=== PATIENT | female | born 1945 | race Caucasian/White ===

== ENCOUNTER 2017-06-18 11:35 | Emergency (ER) | payer MEDICARE ==
[~2017-06-18] VITALS: Ht 167.6 cm; Wt 82.0 kg
[~2017-06-18 11:35] MED LIST: AMLO2.5T PO; DULO20 PO; DYAZ37.57 PO; GABA600T PO; IBUP-1116 PO; LOPR100T PO; NITR0.4S SL; OMPR20CCR PO; ONDA4 PO; ST J81CH PO; TROS60CA PO; VITA400C28 PO; WARF2.5T40 PO; WARF5TAB PO; [UNRECOGNIZED DRUG - CODE] XX
[2017-06-18 11:37] VITALS: BP 125/76; PULSE 72; RESP 15; TEMP 98.1; O2SAT 97
--- NOTE | 2017-06-18 12:33 | PD ---
HPI Chief Complaint: Pain: Acute or Chronic Time Seen by Provider: 12:23 Travel History International Travel<30 days: No Contact w/Intl Traveler<30days: No Traveled to known affect area: No History of Present Illness HPI 71-year-old female presents to the emergency department concerned that she has a DVT and her left lower extremity. Patient reports history of blood clots. She reports having an IVC filter and is currently on Coumadin. She states that she called her physician [place] who stated that she could be switched to Eliquis, but did not give her the prescription. The patient states she dropped a shampoo bottle on her left foot days ago with the pain started. However, she is now having calf pain as well. No fevers or chills. No erythema. No chest pain or shortness of breath. No exacerbating or alleviating factors. Moderate severity. PFSH Past Medical History Cardiovascular Problems: Yes (HTN) Diabetes: Yes Deep Vein Thrombosis: Yes GERD: Yes Hypertension: Yes Past Surgical History Abdominal Surgery: Yes (HERNIA) Cholecystectomy: Yes Hysterectomy: Yes Other Surgery: Yes (FILTER) Social History Alcohol Use: No Tobacco Use: No Substance Use: No Allergies-Medications (Allergen,Severity, Reaction): Coded Allergies: codeine (Unverified Allergy, Severe, GI UPSET, 06/18/17) hydromorphone (Unverified Allergy, Severe, GI UPSET, 06/18/17) meperidine (Unverified Allergy, Severe, GI UPSET, 06/18/17) Reported Meds & Prescriptions Reported Meds & Active Scripts Active Reported Lopressor (Metoprolol Tartrate) 100 Mg Tab 100 Mg PO BID Warfarin Sodium 5 mg (Warfarin Sodium) 5 Mg Tab 5 Mg PO EVERY OTHER DAY Warfarin Sodium 2.5 mg (Warfarin Sodium) 2.5 Mg Tab 2.5 Mg PO EVERY OTHER DAY Lidocaine (Lidocaine (Bulk)) Cry 1 XX Advil 200 Mg Tab (Ibuprofen) 200 Mg Tab 400 Mg PO Q4H PRN Zofran 4 Mg Tab (Ondansetron Hcl) 4 Mg Tab 4 Mg PO Q6H PRN Prilosec 20 Mg Cap (Omeprazole) 20 Mg Capcr 20 Mg PO DAILY Trospium Chloride ER (Trospium Chloride) 60 Mg Cap 60 Mg PO TID Dyazide (Triamterene/HCTZ) 37.5 Mg/25 Mg Cap 1 Cap PO DAILY Gabapentin 600 Mg Tab 600 Mg PO TID Aspirin 81 mg chewable (Aspirin) 81 Mg Chw 81 Mg PO DAILY Amlodipine Besylate 2.5 mg (Amlodipine Besylate) 2.5 Mg Tab 1 Tab PO DAILY Cymbalta (Duloxetine HCl) 20 Mg Cap 20 Mg PO DAILY Nitrostat (Nitroglycerin) 0.4 Mg Subl 0.4 Mg SL PRN 1 TAB SL EVERY 5 MINS X 3 PRN CHEST PAIN Vitamin D 400 Unit Tab 400 Unit PO DAILY Review of Systems Except as stated in HPI: all other systems reviewed are Neg Physical Exam Narrative GENERAL: Well-nourished, well-developed female patient, afebrile. SKIN: Focused skin assessment warm/dry. Patient has small erythematous, scaly patches to bilateral lateral ankles consistent with her known psoriasis. HEAD: Normocephalic. Atraumatic. EYES: No scleral icterus. No injection or drainage. NECK: Supple, trachea midline. No JVD or lymphadenopathy. CARDIOVASCULAR: Regular rate and rhythm without murmurs, gallops, or rubs. Left pedal pulse 2+. RESPIRATORY: Breath sounds equal bilaterally. No accessory muscle use. Lungs sounds are clear to auscultation. GASTROINTESTINAL: Abdomen soft, non-tender, nondistended. MUSCULOSKELETAL: No cyanosis, or edema. Patient has tenderness over left posterior calf. She also has tenderness over left dorsal foot. BACK: Nontender without obvious deformity. No CVA tenderness. Data Data Last Documented VS Vital Signs Date Time Temp Pulse Resp B/P (MAP) Pulse Ox O2 Delivery O2 Flow Rate FiO2 06/18/17 11:37 98.1 72 15 125/76 (92) 97 Orders Orders Complete Blood Count With Diff (06/18/17 12:29) Basic Metabolic Panel (Bmp) (06/18/17 12:29) Act Partial Throm Time (Ptt) (06/18/17 12:29) Prothrombin Time / Inr (Pt) (06/18/17 12:29) Foot, Complete ([id number]) (06/18/17 ) Us Leg Venous Doppler (06/18/17 ) Labs Laboratory Tests Test 06/18/17 13:00 White Blood Count 7.1 TH/MM3 Red Blood Count 4.45 MIL/MM3 Hemoglobin 13.5 GM/DL Hematocrit 38.5 % Mean Corpuscular Volume 86.6 FL Mean Corpuscular Hemoglobin 30.3 PG Mean Corpuscular Hemoglobin Concent 35.0 % Red Cell Distribution Width 14.8 % Platelet Count 249 TH/MM3 Mean Platelet Volume 8.3 FL Neutrophils (%) (Auto) 61.9 % Lymphocytes (%) (Auto) 27.6 % Monocytes (%) (Auto) 7.9 % Eosinophils (%) (Auto) 2.1 % Basophils (%) (Auto) 0.5 % Neutrophils # (Auto) 4.4 TH/MM3 Lymphocytes # (Auto) 2.0 TH/MM3 Monocytes # (Auto) 0.6 TH/MM3 Eosinophils # (Auto) 0.2 TH/MM3 Basophils # (Auto) 0.0 TH/MM3 CBC Comment DIFF FINAL Differential Comment Prothrombin Time 28.2 SEC Prothromb Time International Ratio 2.8 RATIO Activated Partial Thromboplast Time 32.0 SEC Blood Urea Nitrogen 20 MG/DL Creatinine 1.01 MG/DL Random Glucose 231 MG/DL Calcium Level 8.8 MG/DL Sodium Level 140 MEQ/L Potassium Level 4.0 MEQ/L Chloride Level 105 MEQ/L Carbon Dioxide Level 26.2 MEQ/L Anion Gap 9 MEQ/L Estimat Glomerular Filtration Rate 54 ML/MIN MDM Medical Decision Making Medical Screen Exam Complete: Yes Emergency Medical Condition: Yes Medical Record Reviewed: Yes Interpretation(s) Last Impressions Lower Extremity Ultrasound 06/18/17 0000 Signed Impressions: Service Date/Time: Sunday, June 18, 2017 12:47 - CONCLUSION: Nonocclusive deep vein thrombosis of the proximal to mid left femoral vein. Александр Clarke MD Foot X-Ray 06/18/17 0000 Signed Impressions: Service Date/Time: Sunday, June 18, 2017 12:40 - CONCLUSION: No evidence of fracture. Александр Clarke MD Differential Diagnosis DVT versus contusion versus fracture versus muscle strain versus muscle spasm Narrative Course 71-year-old female presents to the emergency department for possible DVT the left lower extremity. CBC, BMP, PTT, PT/INR ordered and pending. Venous Doppler ultrasound left lower extremity is ordered and pending. X-ray of the left foot is ordered and pending. CBC is unremarkable. BMP shows no acute abnormality. PTT is 32.0. PT/INR is 28.2/2.8. US shows nonocclusive deep vein thrombosis in the proximal to mid left femoral vein. X-ray of the left foot shows no evidence of fracture. Patient reports over for the DVT his left lower extremity. This is a nonocclusive, most likely old DVT. Discussed results with tenderness in, Dr. Nicole, who agrees. Patient's INR is therapeutic and she has an IVC filter. She is encouraged to follow-up with her primary care physician. She is asking for a prescription for her psoriasis to her bilateral ankles. She'll be given a prescription for triamcinolone cream she is return here for any acute worsening of symptoms. She verbalizes agreement and understanding. Diagnosis Primary Impression: DVT (deep venous thrombosis) Qualified Codes: I82.512 - Chronic embolism and thrombosis of left femoral vein Additional Impression: Psoriasis Referrals: Primary Care Physician call for appointment Patient Instructions: Deep Venous Thrombosis (ED), General Instructions, Psoriasis (ED) Med/Other Pt SpecificInfo: Prescription(s) given Scripts Triamcinolone Topical (Triamcinolone Topical) 0.1% Cream 1 APPLIC TOPICAL BID for Inflammation, #30 GM 0 Refills Prov: Radha Starkey 06/18/17 Disposition: 01 DISCHARGE HOME Condition: Stable Radha Starkey Jun 18, 2017 12:33
--- NOTE | 2017-06-18 12:56 | RADRPT ---
EXAM DATE/TIME: 06/18/2017 12:40 [facility] COMPARISON: No previous studies available for comparison. INDICATIONS : Pain after dropping object on foot. MEDICAL HISTORY : None. SURGICAL HISTORY : Cysts removal. ENCOUNTER: Initial ACUITY: 3 days PAIN SCORE: 2/10 LOCATION: Bilateral chest FINDINGS: 3 views of the left foot. Bone alignment within normal limits. No evidence of fracture. Moderate-siz ed plantar calcaneal spur. CONCLUSION: No evidence of fracture. Александр Clarke MD on June 18, 2017 at 12:52 Board Certified Radiologist. This report was verified electronically.
--- NOTE | 2017-06-18 13:18 | RADRPT ---
EXAM DATE/TIME: 06/18/2017 12:47 [facility] COMPARISON: No previous studies available for comparison. INDICATIONS : Left leg pain. MEDICAL HISTORY : Hypertension. Gastroesophageal reflux disease. Deep vein thrombosis. Hernia. Diabetes. IVC filt er. SURGICAL HISTORY : Cholecystectomy. Hysterectomy. IVC Filter placement. Hernia repair. Right shoulder surgery. Right kn ee surgery. ENCOUNTER: Initial ACUITY: 1 day PAIN SCORE: 3/10 LOCATION: Left leg. TECHNIQUE: Venous ultrasound of the leg was performed from the inguinal ligament to the proximal calf. Real-sunita e, color Doppler and spectral tracing, compression and augmentation techniques were used. FINDINGS: There is incomplete compression and incomplete filling with color Doppler flow of the proximal to mid superficial femoral vein on the left indicating nonocclusive deep vein thrombosis. The common femora l vein, distal superficial femoral vein, popliteal vein, and calf veins are patent. CONCLUSION: Nonocclusive deep vein thrombosis of the proximal to mid left femoral vein. Александр Clarke MD on June 18, 2017 at 13:13 Board Certified Radiologist. This report was verified electronically.
[2017-06-18 13:21] LABS: AUTOMATED NEUTROPHIL # 4.4 TH/MM3 (1.8-7.7); BASOPHIL % 0.5 % (0.0-2.0); EOSINOPHIL # 0.2 TH/MM3 (0-0.4); EOSINOPHIL % 2.1 % (0.0-4.0); HEMATOCRIT 38.5 % (35.0-46.0); HEMOGLOBIN 13.5 GM/DL (11.6-15.3); LYMPH % 27.6 % (9.0-44.0); MEAN CELL VOLUME 86.6 FL (80.0-100.0); MEAN CORPUSCULAR HEMOGLOBIN 30.3 PG (27.0-34.0); MEAN PLATELET VOLUME 8.3 FL (7.0-11.0); MONO % 7.9 % (0.0-8.0); MONOCYTE # 0.6 TH/MM3 (0-0.9); NEUT % 61.9 % (16.0-70.0); PLATELET COUNT 249 TH/MM3 (150-450); RED BLOOD COUNT 4.45 MIL/MM3 (4.00-5.30); RED CELL DISTRIBUTION WIDTH 14.8 % (11.6-17.2); WHITE BLOOD COUNT 7.1 TH/MM3 (4.0-11.0)
[2017-06-18 13:30] LABS: INTERNATIONAL NORMALIZED RATIO 2.8 RATIO; PROTHROMBIN TIME - PATIENT 28.2 SEC (9.8-11.6)
[2017-06-18 13:48] LABS: BICARBONATE 26.2 MEQ/L (21.0-32.0); CALCIUM 8.8 MG/DL (8.5-10.1); CREATININE 1.01 MG/DL (0.50-1.00)
[2017-06-18] MEDS ORDERED: TRIA.1%T TOPICAL (14:06)
[2017-06-18] MEDS ORDERED: AMLO2.5T PO (14:31)
[2017-06-18] MEDS ORDERED: TROS60CA2 PO (14:31)
[2017-06-18] MEDS ORDERED: OMEP20TA93 PO (14:31)
[2017-06-18] MEDS ORDERED: VITA1000 PO (14:31)
[2017-06-18] MEDS ORDERED: WARF-23 PO (14:31)
[2017-06-18] MEDS ORDERED: GABA600T PO (14:31)
[2017-06-18] MEDS ORDERED: ASPI81CH6 CHEW (14:31)
[2017-06-18] MEDS ORDERED: DULO20 PO (14:31)
[2017-06-18] MEDS ORDERED: DYAZ37.5 PO (14:31)
[2017-06-18] MEDS ORDERED: METO-338 PO (14:31)
== END 2017-06-18 14:32 | disposition home or self-care (01) ==
LOC: NEPD 11:35
DX: I82.512 Chronic embolism and thrombosis of left femoral vein (principal); L40.9 Psoriasis, unspecified; I10 Essential (primary) hypertension; K21.9 Gastro-esophageal reflux disease without esophagitis; Z79.01 Long term (current) use of anticoagulants
CPT/HCPCS: 73630; 80048; 85025; 85610; 85730; 93971